=== PATIENT | female | born 1960 | race Two or more races ===

== ENCOUNTER 2023-11-28 14:12 | Inpatient (IN) | payer OTHER, SELFPAY ==
[~2023-11-28] VITALS: Ht 165.1 cm; Wt 116.8 kg
[2023-11-28] MEDS: FUROSEMIDE 100 MG/10ML VIAL IV ONE (15:23)
[2023-11-28 15:30] LABS: INR 1.12 (0.9-1.15); Partial Thromboplastin Time 21.6 SEC (24.5-34.5); Prothrombin Time 11.8 sec (9.3-11.8)
[2023-11-28 15:36] VITALS: PULSE 116; RESP 14; O2SAT 98
[2023-11-28 15:51] LABS: Alanine Aminotransferase 17 U/L (7-40); Albumin 3.7 g/dL (3.2-4.8); Alkaline Phosphatase 112 U/L (46-116); Anion Gap 5 (5-15); Aspartate Aminotransferase 13 U/L (13-40); BUN/Creatinine Ratio 12.4 (10.0-20.0); Blood Alcohol 4.3 mg/dL (<10); Blood Urea Nitrogen 11 mg/dL (9-23); Calcium 10.2 mg/dL (8.7-10.4); Carbon Dioxide 23 mmol/L (20-30); Chloride 110 mmol/L (98-107); Glucose 116 mg/dL (74-106); Potassium 3.7 mmol/L (3.5-5.1); Sodium 138 mmol/L (136-145)
[2023-11-28 15:52] LABS: Bilirubin, Total 0.8 mg/dL (0.2-1.0); Total Protein 6.2 g/dL (5.7-8.2)
[2023-11-28 16:19] LABS: Basophils # (auto) 0.1 10 ^3/uL (0-0.2); Basophils % (auto) 0.7 % (0.0-2.0); Eosinophils # (auto) 0.1 10 ^3/uL (0-0.8); Eosinophils % (auto) 1.2 % (0.0-7.0); Lymphocytes # (auto) 1.3 10 ^3/uL (0.4-5.4); Red Cell Distribution Width 16.6 % (11.8-14.3)
[2023-11-28 16:22] LABS: Hematocrit 15.7 % (36.0-46.0); Lymphocytes % (auto) 15.6 % (10.0-50.0); Mean Corpuscular Hemoglobin 27.2 pg (28.0-32.0); Mean Corpuscular Hgb Conc. 32.6 g/dL (32.0-36.0); Mean Corpuscular Volume 83.5 fL (80.0-100.0); Monocytes # (auto) 0.7 10 ^3/uL (0-1.3); Monocytes % (auto) 8.5 % (0.0-12.0); Nucleated Red Blood Cells % 1.4 %; Platelet Count (auto) 294 10^3/uL (140-450); Red Blood Cells 1.88 10^6/uL (4.0-5.20); White Blood Cell 8.1 10^3/uL (4.4-10.8)
[2023-11-28 16:28] LABS: Hemoglobin 5.1 g/dL (12.2-16.2)
[2023-11-28 16:35] LABS: Amphetamine Screen, Urine Neg (NEGATIVE); Barbiturate Scree,Urine Neg (NEGATIVE); Benzodiazephine Screen, Urine Neg (NEGATIVE); Cannabinoid Screen, Urine Neg (NEGATIVE); Cocaine Screen, Urine Neg (NEGATIVE); Opiate Scree,Urine Neg (NEGATIVE); Phencyclidine Screen, Urine Neg (NEGATIVE)
[2023-11-28 16:39] LABS: Urine Bacteria FEW /hpf (None Seen); Urine Blood Negative /uL (Negative); Urine Clarity Clear (Clear); Urine Color Colorless (Yellow); Urine Protein, UAD Negative (Negative); Urine Specific Gravity 1.007 (1.001-1.035); Urine Urobilinogen Normal (Negative); Urine WBC 3 /hpf (0 - 5); Urine pH 6.5 (5.0-9.0)
[2023-11-28] MEDS: ACETAMINOPHEN 325 MG TAB PO ONE (17:01)
[2023-11-28] MEDS: IRON SUCROSE COMPLEX 100 ML IV ONE (17:02)
[2023-11-28] MEDS ORDERED: DOCUSATE SOD 100 MG CAP PO PRN (18:45)
[2023-11-28] MEDS: SODIUM CHLORIDE 0.9% 1,000 ML IV SCH (18:45)
[2023-11-28] MEDS ORDERED: diphenhdrAMINE HCL 50 MG/1 ML VL IV PRN (18:45)
[2023-11-28] MEDS ORDERED: NITROGLYCERIN 0.4 MG SL TAB SL PRN (19:00)
[2023-11-28] MEDS ORDERED: MORPHINE SULFATE INJ 2 MG/ml SYRG IV PRN (19:00)
[2023-11-28 19:30] VITALS: PULSE 144; RESP 12; O2SAT 98
[2023-11-28] MEDS: ONDANSETRON HCL 4 MG/2 ML VIAL IV PRN (20:20)
[2023-11-29] VITALS (8 sets, daily range): BP systolic 95–121; BP diastolic 50–75; PULSE 88–114; RESP 17–26; TEMP 98.1–98.6; O2SAT 93–100
[2023-11-29] MEDS: HYDROcodone-ACET 5/325MG TAB PO PRN (02:45)
[2023-11-29 04:57] LABS: Basophils # (auto) 0.1 10 ^3/uL (0-0.2); Basophils % (auto) 0.7 % (0.0-2.0); Eosinophils # (auto) 0.1 10 ^3/uL (0-0.8); Eosinophils % (auto) 1.1 % (0.0-7.0); Hematocrit 14.6 % (36.0-46.0); Lymphocytes # (auto) 1.2 10 ^3/uL (0.4-5.4); Mean Corpuscular Hemoglobin 26.8 pg (28.0-32.0); Mean Corpuscular Hgb Conc. 32.7 g/dL (32.0-36.0); Monocytes # (auto) 0.5 10 ^3/uL (0-1.3); Monocytes % (auto) 6.7 % (0.0-12.0); Neutrophils # (auto) 5.5 10 ^3/uL (1.6-8.6); Neutrophils % (auto) 74.5 % (37.0-80.0); Nucleated Red Blood Cells % 1.6 %; Platelet Count (auto) 269 10^3/uL (140-450); Red Blood Cells 1.78 10^6/uL (4.0-5.20); Red Cell Distribution Width 16.9 % (11.8-14.3); White Blood Cell 7.4 10^3/uL (4.4-10.8)
[2023-11-29 05:01] LABS: Hemoglobin 4.8 g/dL (12.2-16.2)
[2023-11-29 05:10] LABS: Alanine Aminotransferase 13 U/L (7-40); Albumin 3.4 g/dL (3.2-4.8); Alkaline Phosphatase 107 U/L (46-116); Anion Gap 5 (5-15); Aspartate Aminotransferase 12 U/L (13-40); BUN/Creatinine Ratio 11.1 (10.0-20.0); Blood Urea Nitrogen 10 mg/dL (9-23); Carbon Dioxide 25 mmol/L (20-30); Chloride 108 mmol/L (98-107); Glucose 109 mg/dL (74-106); Potassium 3.4 mmol/L (3.5-5.1); Sodium 138 mmol/L (136-145)
[2023-11-29 05:11] LABS: Bilirubin, Total 0.9 mg/dL (0.2-1.0); Total Protein 5.9 g/dL (5.7-8.2)
[2023-11-29] MEDS: FUROSEMIDE 40 MG/4 ML VIAL IV SCH (10:08)
[2023-11-29] MEDS: CARVEDILOL 3.125 MG TAB PO SCH (10:09)
[2023-11-29 11:29] LABS: % Iron Saturation 67.6 % (15-50)
[2023-11-29] MEDS: POTASSIUM EFFERVESENT TAB 25 MEQ PO ONE (12:34)
[2023-11-29] MEDS: metroNIDAZOLE 500MG/100ML 100 ML IV SCH (15:59)
[2023-11-29] MEDS: IRON SUCROSE COMPLEX 100 ML IV SCH (17:19)
[2023-11-30] VITALS (24 sets, daily range): BP systolic 99–127; BP diastolic 48–81; PULSE 78–125; RESP 12–27; TEMP 97–98.5; O2SAT 97–100
[2023-11-30 05:54] LABS: Basophils # (auto) 0.1 10 ^3/uL (0-0.2); Eosinophils # (auto) 0.3 10 ^3/uL (0-0.8); Lymphocytes # (auto) 1.3 10 ^3/uL (0.4-5.4); Mean Corpuscular Hemoglobin 26.8 pg (28.0-32.0); Monocytes # (auto) 0.8 10 ^3/uL (0-1.3); Neutrophils # (auto) 7.5 10 ^3/uL (1.6-8.6); Red Blood Cells 1.71 10^6/uL (4.0-5.20); White Blood Cell 9.9 10^3/uL (4.4-10.8)
[2023-11-30 05:56] LABS: Basophils % (auto) 0.5 % (0.0-2.0); Eosinophils % (auto) 3.2 % (0.0-7.0); Lymphocytes % (auto) 12.7 % (10.0-50.0); Mean Corpuscular Hgb Conc. 32.6 g/dL (32.0-36.0); Mean Corpuscular Volume 82.2 fL (80.0-100.0); Monocytes % (auto) 7.7 % (0.0-12.0); Neutrophils % (auto) 75.9 % (37.0-80.0); Nucleated Red Blood Cells % 2.6 %; Platelet Count (auto) 239 10^3/uL (140-450); Red Cell Distribution Width 17.5 % (11.8-14.3)
[2023-11-30 06:02] LABS: Chloride 106 mmol/L (98-107); Potassium 4.3 mmol/L (3.5-5.1); Sodium 140 mmol/L (136-145)
[2023-11-30 06:03] LABS: Anion Gap 8 (5-15); Calcium 9.6 mg/dL (8.7-10.4); Carbon Dioxide 26 mmol/L (20-30)
[2023-11-30 06:08] LABS: BUN/Creatinine Ratio 13.1 (10.0-20.0); Blood Urea Nitrogen 14 mg/dL (9-23); Glucose 106 mg/dL (74-106)
[2023-11-30 06:11] LABS: Hemoglobin 4.6 g/dL (12.2-16.2)
[2023-11-30 06:13] LABS: Folate (Folic Acid) 11.26 ng/mL (>5.38)
[2023-11-30] MEDS: levoFLOXacin 500MG 100 ML IV SCH (09:17)
[2023-11-30] MEDS: SALINE 0.65 % NASAL SPRAY 45ML BOTTLE EACHNOSTRI ONE (16:12)
[2023-11-30] MEDS: SALINE 0.65 % NASAL SPRAY 45ML BOTTLE EACHNOSTRI SCH (18:00)
[2023-11-30] MEDS: EPOETIN ALFA-EPBX 4,000 UNIT/ML VIAL SC ONE (21:47)
[2023-12-01] VITALS (18 sets, daily range): BP systolic 95–124; BP diastolic 38–73; PULSE 79–111; RESP 17–29; TEMP 97.8–98.6; O2SAT 100
[2023-12-01 05:12] LABS: Hemoglobin 4.8 g/dL (12.2-16.2)
[2023-12-01] MEDS: Ensure HIGH Protein Chocolate 8oz Bottle PO SCH (18:00)
[2023-12-02] VITALS (16 sets, daily range): BP systolic 105–123; BP diastolic 54–85; PULSE 65–124; RESP 16–21; TEMP 97.7–98.7; O2SAT 93–100
[2023-12-03] VITALS (7 sets, daily range): BP systolic 101–118; BP diastolic 46–73; PULSE 91–125; RESP 15–20; TEMP 98.2–99; O2SAT 99–100
[2023-12-03] MEDS: ACETAMINOPHEN 325 MG TAB PO PRN (14:42)
[2023-12-04] VITALS (8 sets, daily range): BP systolic 103–124; BP diastolic 57–76; PULSE 66–115; RESP 17–20; TEMP 97.5–99.2; O2SAT 96–99
[2023-12-04 20:42] LABS: Basophils # (auto) 0 10 ^3/uL (0-0.2); Eosinophils # (auto) 0.2 10 ^3/uL (0-0.8); Lymphocytes # (auto) 1.2 10 ^3/uL (0.4-5.4); Monocytes # (auto) 0.5 10 ^3/uL (0-1.3); Platelet Count (auto) 189 10^3/uL (140-450)
[2023-12-04 20:44] LABS: Basophils % (auto) 0.5 % (0.0-2.0); Hematocrit 19.7 % (36.0-46.0); Lymphocytes % (auto) 13.2 % (10.0-50.0); Mean Corpuscular Hemoglobin 28.1 pg (28.0-32.0); Mean Corpuscular Hgb Conc. 30.5 g/dL (32.0-36.0); Monocytes % (auto) 5.4 % (0.0-12.0); Neutrophils % (auto) 78.9 % (37.0-80.0); Nucleated Red Blood Cells % 0.7 %; Red Blood Cells 2.14 10^6/uL (4.0-5.20); White Blood Cell 8.9 10^3/uL (4.4-10.8)
[2023-12-04 20:51] LABS: Red Cell Distribution Width 27.6 % (11.8-14.3)
[2023-12-04 21:25] LABS: Anisocytosis Moderate; Platelet Estimate Adequate
[2023-12-04 21:29] LABS: Stomatocytes Few
[2023-12-05] VITALS (8 sets, daily range): BP systolic 111–139; BP diastolic 49–86; PULSE 83–107; RESP 18–20; TEMP 97.3–98.9; O2SAT 94–100
[2023-12-05 06:54] LABS: Hematocrit 19.3 % (36.0-46.0)
[2023-12-05 07:02] LABS: Hemoglobin 6.1 g/dL (12.2-16.2)
[2023-12-05] MEDS: IRON SUCROSE COMPLEX 100 ML IV SCH (13:44)
[2023-12-05] MEDS: metroNIDAZOLE 500 MG TAB PO SCH (14:52)
[2023-12-05] MEDS: FUROSEMIDE 20 MG/2 ML VIAL IV ONE (16:28)
[2023-12-05] MEDS: EPOETIN ALFA-EPBX 4,000 UNIT/ML VIAL SC ONE (21:37)
[2023-12-06] VITALS (7 sets, daily range): BP systolic 102–136; BP diastolic 54–78; PULSE 74–126; RESP 17–20; TEMP 97.6–98.4; O2SAT 96–100
[2023-12-06 07:05] LABS: Hematocrit 19.8 % (36.0-46.0)
[2023-12-06 07:27] LABS: Hemoglobin 6.1 g/dL (12.2-16.2)
[2023-12-06] MEDS: levoFLOXacin 500 MG TAB PO SCH (11:12)
[2023-12-06] MEDS ORDERED: CARV-214 PO (14:33)
[2023-12-06] MEDS ORDERED: FER325T PO ×2 (14:33→15:06)
== END 2023-12-06 17:48 | disposition home or self-care (01) | DRG 377 ==
LOC: ER 14:12 → TELE 19:05 → TELE-CENTR 11-29 10:22 → DOU IN ICU 11-29 18:50 → TELE-EAST 12-02 05:30
PROVIDERS: ADMIT Internal Medicine Geriatric Medicine; ATTEND Internal Medicine Geriatric Medicine
PROC: 05HD33Z Insertion of Infusion Device into Right Cephalic Vein, Percutaneous Approach (ICD-10-PCS; principal; 2023-12-01)
PROC: B54MZZA Ultrasonography of Right Upper Extremity Veins, Guidance (ICD-10-PCS; 2023-12-01)
DX: K57.33 Diverticulitis of large intestine without perforation or abscess with bleeding (principal); I50.31 Acute diastolic (congestive) heart failure; Z68.41 Body mass index [BMI] 40.0-44.9, adult; I48.20 Chronic atrial fibrillation, unspecified; N20.0 Calculus of kidney; K80.20 Calculus of gallbladder without cholecystitis without obstruction; E66.9 Obesity, unspecified; D50.0 Iron deficiency anemia secondary to blood loss (chronic); I11.0 Hypertensive heart disease with heart failure; E87.6 Hypokalemia; Z83.3 Family history of diabetes mellitus; Z82.49 Family history of ischemic heart disease and other diseases of the circulatory system; K57.31 Diverticulosis of large intestine without perforation or abscess with bleeding
CPT/HCPCS: 36415; 71045; 74176; 76705; 80048; 80053; 80307; 80320; 81001; 82607; 82728; 82746; 82962; 83540; 83550; 83605; 83690; 83735; 83880; 84443; 84484; 85014; 85018; 85025; 85610; 85730; 86850; 86900; 86901; 93005; 93306; 96365; 96375; 97163; 99291; G0378; J1756; J1956; J2405; J3490